=== PATIENT | female | born 1955 | race Caucasian/White ===

== ENCOUNTER → 2017-02-06 | Outpatient (CLI) | payer BC ==
[~2017-02-06] MED LIST: AMLO5TAB88 PO; ATOR10TA PO; ATOR20TA65 PO; Aspirin PO; CLON0.1T PO; Hydralazine Hcl PO; LEVVL SUBCUT; LORA0.5T2 PO; Lisinopril PO; METF10002 PO
== END | disposition home or self-care (01) ==
LOC: MRI 07:44
PROVIDERS: ATTEND Psychiatry & Neurology Neurology
DX: R41.3 Other amnesia (principal)
CPT/HCPCS: 70551

== ENCOUNTER → 2018-03-27 | Outpatient (CLI) | payer OTHER ==
[~2018-03-27] MED LIST changes: -METF10002 PO; +METF10004 PO
[2018-03-27 11:42] LABS: CHLORIDE 102 mEq/L (98-107)
[2018-03-27 11:46] LABS: BASOPHILS % 0.5 % (0.0-2.0); EOSINOPHILS % 2.6 % (0.0-5.0); HEMATOCRIT. 39.8 % (36.0-48.0); HEMOGLOBIN. 13.2 g/dL (12.0-16.0); LYMPHOCYTES % 20.8 % (20.0-50.0); MEAN CORPUSCULAR HEMOGLOBIN 29.7 pg (28.0-32.0); MEAN CORPUSCULAR VOLUME 89.6 fL (81.0-99.0); MEAN PLATELET VOLUME 8.5 fl (7.4-10.4); MONOCYTES % 8.6 % (2.0-8.0); NEUTROPHILS % 67.5 % (40.0-76.0); PLATELET 323 x1000/uL (130-400); RED BLOOD CELL COUNT 4.44 mill/uL (4.2-5.4); RED CELL DISTRIBUTION WIDTH 13.5 % (11.6-14.6)
== END | disposition home or self-care (01) ==
LOC: LAB 10:43
PROVIDERS: ATTEND Podiatrist Foot & Ankle Surgery
DX: E11.9 Type 2 diabetes mellitus without complications (principal); I73.9 Peripheral vascular disease, unspecified; I10 Essential (primary) hypertension
CPT/HCPCS: 36415; 80053; 83036; 85025

== ENCOUNTER → 2018-05-01 | Outpatient (CLI) | payer BC | END | disposition home or self-care (01) | LOC: RAD 08:59 | PROVIDERS: ATTEND Podiatrist Foot & Ankle Surgery | DX: M20.12 Hallux valgus (acquired), left foot (principal); M21.612 Bunion of left foot; M20.11 Hallux valgus (acquired), right foot; M21.611 Bunion of right foot | CPT/HCPCS: 73630; 93923 ==

== ENCOUNTER → 2018-07-17 | Outpatient (CLI) | payer BC ==
[~2018-07-17] MED LIST changes: +METF-416 PO; -METF10004 PO
[2018-07-17 10:08] LABS: EOSINOPHILS % 2.6 % (0.0-5.0); HEMATOCRIT. 39.9 % (36.0-48.0); HEMOGLOBIN. 13.3 g/dL (12.0-16.0); LYMPHOCYTES % 23.3 % (20.0-50.0); MEAN CORPUSCULAR HEMOGLOBIN 30.2 pg (28.0-32.0); MEAN CORPUSCULAR VOLUME 90.5 fL (81.0-99.0); MEAN PLATELET VOLUME 8.6 fl (7.4-10.4); NEUTROPHILS % 64.1 % (40.0-76.0); PLATELET 325 x1000/uL (130-400); RED CELL DISTRIBUTION WIDTH 13.5 % (11.6-14.6)
[2018-07-17 10:21] LABS: CHLORIDE 106 mEq/L (98-107)
== END | disposition home or self-care (01) ==
LOC: LAB 09:38
PROVIDERS: ATTEND Podiatrist Foot & Ankle Surgery
DX: B35.1 Tinea unguium (principal); L60.3 Nail dystrophy; M79.672 Pain in left foot; M79.671 Pain in right foot
CPT/HCPCS: 36415

== ENCOUNTER → 2018-11-11 | Outpatient (CLI) | payer BC ==
[2018-11-11 13:30] LABS: BASOPHILS % 0.4 % (0.0-2.0); EOSINOPHILS % 2.1 % (0.0-5.0); HEMATOCRIT. 39.6 % (36.0-48.0); LYMPHOCYTES % 17.8 % (20.0-50.0); MEAN CORPUSCULAR HEMOGLOBIN 29.5 pg (28.0-32.0); MEAN CORPUSCULAR VOLUME 89.8 fL (81.0-99.0); MEAN PLATELET VOLUME 8.8 fl (7.4-10.4); MONOCYTES % 7.4 % (2.0-8.0); NEUTROPHILS % 72.3 % (40.0-76.0); PLATELET 295 x1000/uL (130-400); RED BLOOD CELL COUNT 4.41 mill/uL (4.2-5.4); RED CELL DISTRIBUTION WIDTH 13.9 % (11.6-14.6)
[2018-11-11 13:35] LABS: CHLORIDE 104 mEq/L (98-107)
== END | disposition home or self-care (01) ==
LOC: LAB 13:05
PROVIDERS: ATTEND Podiatrist Foot & Ankle Surgery
DX: B35.1 Tinea unguium (principal); L60.3 Nail dystrophy
CPT/HCPCS: 36415

== ENCOUNTER 2018-12-31 13:08 | Emergency (ER) | payer BC, OTHER ==
[~2018-12-31] VITALS: Ht 165.1 cm; Wt 69.0 kg
[2018-12-31] MEDS ORDERED: ONDANSETRON HCL 4MG/2ML INJ IV STA (13:42)
[2018-12-31] MEDS ORDERED: CLONIDINE 0.2MG TABLET PO ONE (13:45)
[2018-12-31 14:03] LABS: BASOPHILS % 0.4 % (0.0-2.0); EOSINOPHILS % 1.1 % (0.0-5.0); HEMATOCRIT. 39.8 % (36.0-48.0); HEMOGLOBIN. 13.1 g/dL (12.0-16.0); LYMPHOCYTES % 7.4 % (20.0-50.0); MEAN CORPUSCULAR HEMOGLOBIN 29.8 pg (28.0-32.0); MEAN CORPUSCULAR VOLUME 90.8 fL (81.0-99.0); MEAN PLATELET VOLUME 8.9 fl (7.4-10.4); MONOCYTES % 7.9 % (2.0-8.0); NEUTROPHILS % 83.2 % (40.0-76.0); PLATELET 298 x1000/uL (130-400); RED BLOOD CELL COUNT 4.38 mill/uL (4.2-5.4); RED CELL DISTRIBUTION WIDTH 13.8 % (11.6-14.6)
[2018-12-31 14:05] LABS: CHLORIDE 105 mEq/L (98-107)
[2018-12-31 14:08] LABS: INR 0.9; PARTIAL THROMBOPLASTIN TIME 27.8 sec (23.4-31.0); PROTHROMBIN TIME 9.6 sec (9.6-11.0)
[2018-12-31 17:22] VITALS: BP 156/75
== END 2018-12-31 17:25 | disposition home or self-care (01) ==
LOC: ER 13:23
DX: R51 Headache (principal); I10 Essential (primary) hypertension; E11.65 Type 2 diabetes mellitus with hyperglycemia; Z79.4 Long term (current) use of insulin
CPT/HCPCS: 36415; 70450; 71045; 80053; 82962; 83880; 84484; 85025; 85610; 85730; 93005; 96374; 99284; J2405

== ENCOUNTER → 2019-01-05 | Outpatient (CLI) | payer BC ==
[2019-01-05 12:56] LABS: BASOPHILS % 0.8 % (0.0-2.0); EOSINOPHILS % 1.9 % (0.0-5.0); HEMOGLOBIN. 12.9 g/dL (12.0-16.0); LYMPHOCYTES % 19.9 % (20.0-50.0); MEAN CORPUSCULAR HEMOGLOBIN 29.9 pg (28.0-32.0); MEAN CORPUSCULAR VOLUME 90.6 fL (81.0-99.0); MEAN PLATELET VOLUME 8.5 fl (7.4-10.4); NEUTROPHILS % 70.4 % (40.0-76.0); PLATELET 312 x1000/uL (130-400); RED BLOOD CELL COUNT 4.31 mill/uL (4.2-5.4); RED CELL DISTRIBUTION WIDTH 13.2 % (11.6-14.6)
[2019-01-05 13:04] LABS: CHLORIDE 106 mEq/L (98-107)
[2019-01-05 13:12] LABS: LDL CHOLESTEROL 94 mg/dL (5-100)
[2019-01-05 13:13] LABS: HDL CHOLESTEROL 37 mg/dL (40-59); T4 FREE 1.03 ng/dL (0.76-1.46)
== END | disposition home or self-care (01) ==
LOC: LAB 12:21
PROVIDERS: ATTEND Pathology Anatomic Pathology & Clinical Pathology
DX: Z13.220 Encounter for screening for lipoid disorders (principal); I10 Essential (primary) hypertension; E11.9 Type 2 diabetes mellitus without complications; E66.3 Overweight
CPT/HCPCS: 36415; 80061; 84439; 84443

== ENCOUNTER → 2019-02-02 | Outpatient (CLI) | payer BC ==
[2019-02-02 14:53] LABS: BASOPHILS % 0.6 % (0.0-2.0); EOSINOPHILS % 1.7 % (0.0-5.0); HEMATOCRIT. 37.2 % (36.0-48.0); HEMOGLOBIN. 12.3 g/dL (12.0-16.0); MEAN CORPUSCULAR HEMOGLOBIN 30.1 pg (28.0-32.0); MEAN CORPUSCULAR VOLUME 91.1 fL (81.0-99.0); MEAN PLATELET VOLUME 8.8 fl (7.4-10.4); MONOCYTES % 7.8 % (2.0-8.0); NEUTROPHILS % 73.9 % (40.0-76.0); PLATELET 278 x1000/uL (130-400); RED BLOOD CELL COUNT 4.08 mill/uL (4.2-5.4); RED CELL DISTRIBUTION WIDTH 13.2 % (11.6-14.6)
[2019-02-02 15:08] LABS: CHLORIDE 108 mEq/L (98-107)
[2019-02-02 15:15] LABS: LDL CHOLESTEROL 67 mg/dL (5-100)
[2019-02-02 15:16] LABS: HDL CHOLESTEROL 39 mg/dL (40-59)
[2019-02-02 15:17] LABS: T4 FREE 1.06 ng/dL (0.76-1.46)
== END | disposition home or self-care (01) ==
LOC: LAB 14:16
PROVIDERS: ATTEND Specialist
DX: I10 Essential (primary) hypertension (principal); E11.9 Type 2 diabetes mellitus without complications; E78.5 Hyperlipidemia, unspecified; R00.2 Palpitations; R06.00 Dyspnea, unspecified
CPT/HCPCS: 36415; 80061; 84439; 84443

== ENCOUNTER → 2019-04-01 | Outpatient (CLI) | payer BC ==
[2019-04-01 08:52] LABS: BASOPHILS % 0.6 % (0.0-2.0); EOSINOPHILS % 2.3 % (0.0-5.0); HEMATOCRIT. 34.4 % (36.0-48.0); HEMOGLOBIN. 11.6 g/dL (12.0-16.0); LYMPHOCYTES % 18.5 % (20.0-50.0); MEAN CORPUSCULAR HEMOGLOBIN 30.7 pg (28.0-32.0); MEAN CORPUSCULAR VOLUME 90.8 fL (81.0-99.0); MEAN PLATELET VOLUME 7.8 fl (7.4-10.4); MONOCYTES % 9.5 % (2.0-8.0); NEUTROPHILS % 69.1 % (40.0-76.0); PLATELET 300 x1000/uL (130-400); RED BLOOD CELL COUNT 3.79 mill/uL (4.2-5.4); RED CELL DISTRIBUTION WIDTH 13.4 % (11.6-14.6)
[2019-04-01 08:58] LABS: CHLORIDE 103 mEq/L (98-107)
[2019-04-01 09:06] LABS: LDL CHOLESTEROL 154 mg/dL (5-100)
[2019-04-01 09:08] LABS: HDL CHOLESTEROL 42 mg/dL (40-59)
[2019-04-01 09:12] LABS: T4 FREE 0.96 ng/dL (0.76-1.46)
== END | disposition home or self-care (01) ==
LOC: LAB 08:04
PROVIDERS: ATTEND Specialist
DX: E78.5 Hyperlipidemia, unspecified (principal); E11.9 Type 2 diabetes mellitus without complications; I10 Essential (primary) hypertension
CPT/HCPCS: 36415; 80061; 84439; 84443

== ENCOUNTER 2019-04-12 12:10 | Emergency (ER) | payer BC ==
[~2019-04-12] VITALS: Ht 160 cm; Wt 69.6 kg
[2019-04-12] MEDS ORDERED: SODIUM CHLORIDE 0.9% 1,000 ML IV ONE (13:01)
[2019-04-12] MEDS ORDERED: PROCHLORPERAZINE 10MG/2ML VIAL IV ONE (13:15)
[2019-04-12] MEDS ORDERED: DIPHENHYDRAMINE 50MG/ML VIAL IV ONE (13:15)
[2019-04-12 15:21] LABS: CHLORIDE 107 mEq/L (98-107)
[2019-04-12 15:25] LABS: ETHANOL BLOOD < 10 mg/dL
[2019-04-12 15:28] LABS: BASOPHILS % 0.3 % (0.0-2.0); EOSINOPHILS % 0.1 % (0.0-5.0); HEMATOCRIT. 29.6 % (36.0-48.0); HEMOGLOBIN. 9.8 g/dL (12.0-16.0); LYMPHOCYTES % 7.8 % (20.0-50.0); MEAN CORPUSCULAR HEMOGLOBIN 30.5 pg (28.0-32.0); MEAN CORPUSCULAR VOLUME 91.6 fL (81.0-99.0); MEAN PLATELET VOLUME 8.3 fl (7.4-10.4); MONOCYTES % 6.1 % (2.0-8.0); NEUTROPHILS % 85.7 % (40.0-76.0); PLATELET 275 x1000/uL (130-400); RED BLOOD CELL COUNT 3.23 mill/uL (4.2-5.4); RED CELL DISTRIBUTION WIDTH 13.3 % (11.6-14.6)
[2019-04-12 17:34] LABS: CLARITY URINE CLEAR (CLEAR); COLOR URINE YELLOW (YELLOW); KETONES URINE NEGATIVE (NEGATIVE); LEUKOCYTE ESTERASE URINE NEGATIVE (NEGATIVE); NITRITE URINE NEGATIVE (NEGATIVE); OCCULT BLOOD URINE NEGATIVE (NEGATIVE); PH URINE 6.5 (4.5-8.0); PROTEIN URINE NEGATIVE (NEGATIVE); SPECIFIC GRAVITY URINE 1.012 (1.005-1.030); UROBILINOGEN URINE 0.2 E.U./dL (0.2-1.0)
[2019-04-12 18:01] LABS: *AMPHETAMINES SCREEN URINE NEGATIVE (NEGATIVE); *BARBITURATES SCREEN URINE NEGATIVE (NEGATIVE); *BENZODIAZEPINES SCREEN URINE NEGATIVE (NEGATIVE); *COCAINE SCREEN URINE NEGATIVE (NEGATIVE); METHADONE URINE SCREEN NEGATIVE (NEGATIVE); OPIATES URINE SCREEN NEGATIVE (NEGATIVE); PHENCYCLIDINE URINE SCREEN NEGATIVE (NEGATIVE)
[2019-04-12 18:02] LABS: CANNABINOID URINE SCREEN NEGATIVE (NEGATIVE)
[2019-04-12 18:23] VITALS: BP 154/68
== END 2019-04-12 18:26 | disposition home or self-care (01) ==
LOC: ER 14:32
DX: E86.0 Dehydration (principal); E11.65 Type 2 diabetes mellitus with hyperglycemia; D64.9 Anemia, unspecified; R51 Headache; R11.2 Nausea with vomiting, unspecified; I10 Essential (primary) hypertension; I25.2 Old myocardial infarction; Z79.82 Long term (current) use of aspirin; Z79.84 Long term (current) use of oral hypoglycemic drugs; Z79.4 Long term (current) use of insulin; Z79.899 Other long term (current) drug therapy
CPT/HCPCS: 36415; 70450; 71045; 80053; 80305; 80320; 81003; 82962; 85025; 85610; 93005; 96361; 96374; 96375; 99284; J0780; J1200; J7030; G0480

== ENCOUNTER 2019-05-02 18:17 | Emergency (ER) | payer BC ==
[~2019-05-02] VITALS: Ht 160 cm; Wt 70.0 kg
[2019-05-02] MEDS ORDERED: HYDROCODONE/ACETAMINOPHEN 5/325MG TABLET PO ONE (20:30)
[2019-05-02] MEDS ORDERED: AMPICILLIN SOD/SULBACTAM NA 3 G in SODIUM CHLORIDE 0.9% 100 ML IV SCH ×2 (20:30→21:00)
[2019-05-02 22:35] VITALS: BP 127/78
== END 2019-05-02 22:52 | disposition home or self-care (01) ==
LOC: ER 18:17
DX: K04.7 Periapical abscess without sinus (principal); E11.9 Type 2 diabetes mellitus without complications; I10 Essential (primary) hypertension; E78.00 Pure hypercholesterolemia, unspecified; I25.2 Old myocardial infarction; Z98.51 Tubal ligation status; Z79.4 Long term (current) use of insulin; Z79.82 Long term (current) use of aspirin; Z79.899 Other long term (current) drug therapy
CPT/HCPCS: 96365; 99283; J0295; J7050

== ENCOUNTER 2019-09-03 16:45 | Emergency (ER) | payer BC, MEDICARE ==
[~2019-09-03] VITALS: Ht 160 cm; Wt 68.0 kg
[2019-09-03] MEDS ORDERED: SODIUM CHLORIDE 0.9% 1,000 ML IV ONE (18:14)
[2019-09-03] MEDS ORDERED: METOCLOPRAMIDE HCL 10MG/2ML VIAL IV ONE (18:15)
[2019-09-03] MEDS ORDERED: ACETAMINOPHEN 325MG TABLET PO ONE (18:15)
[2019-09-03] MEDS ORDERED: KETOROLAC 15MG/ML VIAL IV ONE (18:15)
[2019-09-03] MEDS ORDERED: MECLIZINE 25MG TABLET PO ONE (18:15)
[2019-09-03 19:12] LABS: BASOPHILS % 0.6 % (0.0-2.0); EOSINOPHILS % 0.9 % (0.0-5.0); HEMATOCRIT. 33.2 % (36.0-48.0); HEMOGLOBIN. 11.1 g/dL (12.0-16.0); LYMPHOCYTES % 19.5 % (20.0-50.0); MEAN CORPUSCULAR HEMOGLOBIN 30.4 pg (28.0-32.0); MEAN CORPUSCULAR VOLUME 90.9 fL (81.0-99.0); MEAN PLATELET VOLUME 8.5 fl (7.4-10.4); MONOCYTES % 8.1 % (2.0-8.0); NEUTROPHILS % 70.9 % (40.0-76.0); PLATELET 289 x1000/uL (130-400); RED BLOOD CELL COUNT 3.65 mill/uL (4.2-5.4); RED CELL DISTRIBUTION WIDTH 13.5 % (11.6-14.6)
[2019-09-03 19:15] LABS: CHLORIDE 105 mEq/L (98-107)
[2019-09-03 19:23] LABS: BETA HYDROXYBUTYRATE 0.1 mMol/L (0.0-0.3)
[2019-09-03 21:41] VITALS: BP 165/82
== END 2019-09-03 21:43 | disposition home or self-care (01) ==
LOC: ER 16:45
DX: E11.65 Type 2 diabetes mellitus with hyperglycemia (principal); R51 Headache; E78.00 Pure hypercholesterolemia, unspecified; I10 Essential (primary) hypertension; Z79.4 Long term (current) use of insulin; Z98.51 Tubal ligation status
CPT/HCPCS: 36415; 80053; 82010; 82962; 85025; 96361; 96374; 96375; 99283; J1885; J2765; J7030; J8597

== ENCOUNTER → 2019-09-03 | Outpatient (CLI) | payer BC ==
[2019-09-03 13:21] LABS: BASOPHILS % 0.6 % (0.0-2.0); EOSINOPHILS % 0.2 % (0.0-5.0); HEMATOCRIT. 33.7 % (36.0-48.0); HEMOGLOBIN. 11.2 g/dL (12.0-16.0); LYMPHOCYTES % 10.9 % (20.0-50.0); MEAN CORPUSCULAR HEMOGLOBIN 30.4 pg (28.0-32.0); MEAN CORPUSCULAR VOLUME 91.4 fL (81.0-99.0); MEAN PLATELET VOLUME 8.6 fl (7.4-10.4); MONOCYTES % 4.9 % (2.0-8.0); NEUTROPHILS % 83.4 % (40.0-76.0); PLATELET 288 x1000/uL (130-400); RED BLOOD CELL COUNT 3.69 mill/uL (4.2-5.4); RED CELL DISTRIBUTION WIDTH 13.6 % (11.6-14.6)
[2019-09-03 13:31] LABS: CHLORIDE 104 mEq/L (98-107)
[2019-09-03 13:41] LABS: LDL CHOLESTEROL 130 mg/dL (5-100)
[2019-09-03 13:42] LABS: HDL CHOLESTEROL 39 mg/dL (40-59); T4 FREE 0.88 ng/dL (0.76-1.46)
== END | disposition home or self-care (01) ==
LOC: LAB 13:03
PROVIDERS: ATTEND Internal Medicine
DX: I10 Essential (primary) hypertension (principal); E11.9 Type 2 diabetes mellitus without complications
CPT/HCPCS: 36415; 80061; 83036; 84439; 84443

== ENCOUNTER 2020-07-08 14:48 | Emergency (ER) | payer BC, MEDICARE ==
[~2020-07-08] VITALS: Ht 160 cm; Wt 73.0 kg
[2020-07-08] MEDS ORDERED: SODIUM CHLORIDE 0.9% 1,000 ML IV ONE (15:45)
[2020-07-08 16:12] LABS: BASOPHILS % 0.5 % (0.0-2.0); EOSINOPHILS % 0.8 % (0.0-5.0); HEMATOCRIT. 35.2 % (36.0-48.0); HEMOGLOBIN. 11.7 g/dL (12.0-16.0); MEAN CORPUSCULAR HEMOGLOBIN 30.2 pg (28.0-32.0); MEAN CORPUSCULAR VOLUME 90.9 fL (81.0-99.0); MEAN PLATELET VOLUME 8.7 fl (7.4-10.4); NEUTROPHILS % 74.7 % (40.0-76.0); PLATELET 293 x1000/uL (130-400); RED BLOOD CELL COUNT 3.87 mill/uL (4.2-5.4); RED CELL DISTRIBUTION WIDTH 13.6 % (11.6-14.6)
[2020-07-08 16:19] LABS: CHLORIDE 101 mEq/L (98-107)
[2020-07-08 16:55] LABS: CLARITY URINE CLEAR (CLEAR); COLOR URINE YELLOW (YELLOW); KETONES URINE NEGATIVE (NEGATIVE); LEUKOCYTE ESTERASE URINE NEGATIVE (NEGATIVE); NITRITE URINE NEGATIVE (NEGATIVE); OCCULT BLOOD URINE NEGATIVE (NEGATIVE); PROTEIN URINE NEGATIVE (NEGATIVE); SPECIFIC GRAVITY URINE 1.031 (1.005-1.030); UROBILINOGEN URINE 0.2 E.U./dL (0.2-1.0)
[2020-07-08] MEDS ORDERED: METFORMIN HCL 500MG TABLET PO ONE (17:00)
[2020-07-08 17:58] VITALS: BP 163/57
== END 2020-07-08 17:59 | disposition home or self-care (01) ==
LOC: ER 14:48
DX: E11.65 Type 2 diabetes mellitus with hyperglycemia (principal); E78.00 Pure hypercholesterolemia, unspecified; I10 Essential (primary) hypertension; Z98.51 Tubal ligation status
CPT/HCPCS: 36415; 80053; 81003; 82962; 83036; 85025; 93005; 96360; 99284; J7030

== ENCOUNTER → 2021-03-21 | Day surgery (SDC) | payer MEDICARE ==
[~2021-03-21] MED LIST changes: +LIDOCAINE HCL 1% 20ML VIAL (Pyxis) INJ ONE; +SODIUM BICARBONATE 4% (2.4MEQ) 5ML VIAL IV ONE
== END | disposition home or self-care (01) ==
LOC: RAD 08:25
PROVIDERS: ATTEND Internal Medicine Endocrinology, Diabetes & Metabolism
DX: E04.1 Nontoxic single thyroid nodule (principal); Z79.899 Other long term (current) drug therapy
CPT/HCPCS: 10005; 88172; 88173; J3490; 20206